=== PATIENT | female | born 1945 | race Caucasian/White ===

== ENCOUNTER → 2017-04-03 | Outpatient (CLI) | payer MEDICARE, OTHER | END | disposition home or self-care (01) | LOC: CFH 10:05 | PROVIDERS: ATTEND Internal Medicine | DX: Z12.31 Encounter for screening mammogram for malignant neoplasm of breast (principal); M85.88 Other specified disorders of bone density and structure, other site; N95.9 Unspecified menopausal and perimenopausal disorder | CPT/HCPCS: 77080; G0202 ==

== ENCOUNTER → 2018-04-14 | Outpatient (CLI) | payer MEDICARE, OTHER | END | disposition home or self-care (01) | LOC: CFH 14:17 | PROVIDERS: ATTEND Internal Medicine | DX: Z12.31 Encounter for screening mammogram for malignant neoplasm of breast (principal) | CPT/HCPCS: 77063; 77067 ==

== ENCOUNTER 2019-05-12 09:58 | Outpatient (CLI) | payer MEDICARE, OTHER ==
[2019-05-12] MEDS ORDERED: POTA20TA6 PO (13:56)
[2019-05-12] MEDS ORDERED: CARV3.122 PO (13:56)
[2019-05-12] MEDS ORDERED: AMLO1CAP42 PO (13:56)
[2019-05-12] MEDS ORDERED: MULT-709 PO (13:56)
== END 2019-05-12 23:59 | disposition home or self-care (01) ==
LOC: CFH 09:58
PROVIDERS: ATTEND Nurse Practitioner Family
DX: R92.2 Inconclusive mammogram (principal)
CPT/HCPCS: 76642; 77066; G0279

== ENCOUNTER 2019-05-12 13:08 | Outpatient (CLI) | payer MEDICARE, OTHER ==
[2019-05-12] MEDS ORDERED: CARV3.122 PO (13:56)
[2019-05-12] MEDS ORDERED: AMLO1CAP42 PO (13:56)
[2019-05-12] MEDS ORDERED: POTA20TA6 PO (13:56)
[2019-05-12] MEDS ORDERED: MULT-709 PO (13:56)
[2019-05-12 14:26] LABS: BASOPHILS # (AUTO) 0.03 x10^3/uL (0-0.1); BASOPHILS % (AUTO) 1 % (0-1); EOSINOPHILS # (AUTO) 0.14 x10^3/uL (0-0.4); EOSINOPHILS % (AUTO) 2 % (1-7); LYMPHOCYTES # (AUTO) 1.85 x10^3/uL (1-3.4); LYMPHOCYTES % (AUTO) 27 % (22-44); MD NO; MEAN CORPUSCULAR HEMOGLOBIN 30.3 pg (27.0-34.8); MEAN CORPUSCULAR VOLUME 89.1 fL (80-100); MEAN PLATELET VOLUME 8.9 fL (7.4-10.4); MONOCYTES # (AUTO) 0.63 x10^3/uL (0.2-0.8); MONOCYTES % (AUTO) 9 % (2-9); NEUTROPHILS % (AUTO) 62 % (42-75); PLATELET COUNT 251 x10^3/uL (130-400); RED BLOOD COUNT 5.13 x10^6/uL (3.82-5.3); RED CELL DISTRIBUTION WIDTH 13.4 % (9.6-15.2)
[2019-05-12 14:31] LABS: ALANINE AMINOTRANSFERASE 29 U/L (12-78); ALBUMIN 3.9 g/dL (3.4-5.0); ANION GAP 5 mmol/L (5-15); CALCIUM 9.1 mg/dL (8.5-10.1); CHLORIDE 109 mmol/L (98-107); CREATININE 0.87 mg/dL (0.55-1.02)
[2019-05-12 14:33] LABS: ALKALINE PHOSPHATASE 133 U/L (45-117); BILIRUBIN,TOTAL 0.5 mg/dL (0.2-1.0); TOTAL PROTEIN 7.5 g/dL (6.4-8.2)
[2019-05-12 14:53] LABS: MICROSCOPIC NOT IND
[2019-05-12 15:02] LABS: CULTURE INDICATED? NO
== END 2019-05-12 23:59 | disposition home or self-care (01) ==
LOC: STAR 13:08
PROVIDERS: ATTEND Orthopaedic Surgery
DX: Z01.818 Encounter for other preprocedural examination (principal); M17.12 Unilateral primary osteoarthritis, left knee
CPT/HCPCS: 36415; 80053; 81003; 85025; 87081; 87389; 93005

== ENCOUNTER 2019-05-25 05:45 | Observation (INO) | payer MEDICARE, OTHER ==
[~2019-05-25] VITALS: Ht 152.4 cm; Wt 83.2 kg
[~2019-05-25 05:45] MED LIST: AMLO1CAP42 PO; CARV3.122 PO; MULT-709 PO; POTA20TA6 PO
[2019-05-25] MEDS ORDERED: LACTATED RINGERS 1,000 ML IV SCH (06:11)
[2019-05-25] MEDS ORDERED: ROPIvacaine/PF 0.2%, 20 ML ONE (06:41)
[2019-05-25] MEDS ORDERED: KETOROLAC 60 MG/2 ML ONE (06:41)
[2019-05-25] MEDS ORDERED: morphine SULFATE/PF 1 MG/ML, 10ML ONE (06:41)
[2019-05-25] MEDS ORDERED: TRANEXAMIC ACID 100 MG/ML, 10ML ONE (06:41)
[2019-05-25] MEDS ORDERED: EPINEPHRINE 1 MG/ML, 1ML ONE (06:42)
[2019-05-25] MEDS ORDERED: SODIUM CHLORIDE 0.9% 50 ML ONE (06:42)
[2019-05-25] MEDS ORDERED: BACITRACIN 50,000 UNIT ONE (06:42)
[2019-05-25] MEDS ORDERED: VANCOMYCIN PMX 1GM/200ML 200 ML IV STA (06:54)
[2019-05-25] MEDS ORDERED: FENTANYL PF 250 MCG/5ML ONE (07:03)
[2019-05-25] MEDS ORDERED: MIDAZOLAM 1 MG/ML, 2ML ONE (07:03)
[2019-05-25] MEDS ORDERED: SCOPOLAMINE PATCH, 1.5MG PATCH.TD72 TD ONE ×2 (07:12→07:30)
[2019-05-25] MEDS ORDERED: ACETAMINOPHEN 500 MG TABLET ONE (07:12)
[2019-05-25] MEDS ORDERED: LIDOCAINE-MPF 2% ,5ML ONE (07:28)
[2019-05-25] MEDS ORDERED: ACETAMINOPHEN 500 MG TABLET PO ONE (07:30)
[2019-05-25] MEDS ORDERED: ONDANSETRON 2MG/ML, 2ML ONE ×2 (08:03→09:40)
[2019-05-25] MEDS ORDERED: DEXAMETHASONE 4 MG/ML, 1ML ONE (08:03)
[2019-05-25] MEDS ORDERED: PROPOFOL 10 MG/ML, 20ML ONE (08:03)
[2019-05-25] MEDS ORDERED: CEFAZOLIN 1,000 MG ONE (08:03)
[2019-05-25] MEDS ORDERED: BUPIVACAINE/PF 0.25% ONE (08:06)
[2019-05-25] MEDS ORDERED: FENTANYL PF 100 MCG/2ML ONE ×2 (08:16→09:41)
[2019-05-25] MEDS ORDERED: ONDANSETRON ODT 8 MG PO PRN (08:30)
[2019-05-25] MEDS ORDERED: FENTANYL PF 100 MCG/2ML IV PRN (08:30)
[2019-05-25] MEDS ORDERED: LABETALOL 5MG/ML, 20ML IV PRN (08:30)
[2019-05-25] MEDS ORDERED: PROMETHAZINE 25 MG/ML, 1ML IV PRN (08:30)
[2019-05-25] MEDS ORDERED: hydrALAzine 20 MG/ML, 1ML IV PRN (08:30)
[2019-05-25] MEDS ORDERED: ONDANSETRON 2MG/ML, 2ML IV PRN (08:30)
[2019-05-25] MEDS ORDERED: HYDROmorphone 2 MG/ML, 1ML IVPush PRN ×2 (08:30→10:00)
[2019-05-25] MEDS ORDERED: OXYcodone 5 MG/5 ML ORAL.SOL UDC PO PRN ×2 (08:30→10:00)
[2019-05-25] MEDS ORDERED: EPHEDRINE 50 MG/ML, 1ML ONE (09:54)
[2019-05-25] MEDS ORDERED: OXYcodone 5 MG/5 ML ORAL.SOL UDC ONE (09:54)
[2019-05-25] MEDS ORDERED: EPHEDRINE 50 MG/ML, 1ML IVPush PRN (10:00)
[2019-05-25] MEDS ORDERED: SODIUM CHLORIDE 0.9%, 500ML IVBOLUS ONE (10:30)
[2019-05-25] MEDS ORDERED: TRANEXAMIC ACID 1,000 MG in SODIUM CHLORIDE 0.9% 100 ML IV ONE (11:00)
[2019-05-25] MEDS ORDERED: CEFAZOLIN PMX 2GM/50ML 50 ML IVPB SCH (11:30)
[2019-05-25] MEDS ORDERED: morphine SULFATE 10 MG/ML, 1ML IV PRN (11:30)
[2019-05-25] MEDS ORDERED: ACETAMINOPHEN 325 MG TABLET PO PRN (11:30)
[2019-05-25] MEDS ORDERED: LORazepam 2 MG/ML, 1ML IV PRN (11:30)
[2019-05-25] MEDS ORDERED: DIPHENHYDRAMINE 25 MG CAPSULE PO PRN (11:30)
[2019-05-25] MEDS ORDERED: ZOLPIDEM 5MG TABLET PO PRN (11:30)
[2019-05-25 12:10] VITALS: BP 105/73
[2019-05-25] MEDS: CEFAZOLIN PMX 2GM/50ML 50 ML IVPB SCH ×2 (15:25→22:57)
[2019-05-25] MEDS: D5%-0.45% NACL 1,000 ML IV SCH ×2 (15:27→20:49)
[2019-05-25] MEDS ORDERED: ASPIRIN 325 MG TABLET EC PO SCH (17:00)
[2019-05-25] MEDS ORDERED: VANCOMYCIN PMX 1GM/200ML 200 ML IV ONE (18:00)
[2019-05-25] MEDS: ONDANSETRON 2MG/ML, 2ML IV PRN (18:12)
[2019-05-25 18:35] VITALS: BP 116/66
[2019-05-25] MEDS: DOCUSATE 100 MG CAPSULE PO SCH (20:48)
[2019-05-25] MEDS ORDERED: CARVEDILOL 3.125 MG TABLET PO SCH (21:00)
[2019-05-26] VITALS: BP 124/80
[2019-05-26] MEDS: D5%-0.45% NACL 1,000 ML IV SCH ×3 (01:54→12:00)
[2019-05-26] MEDS: ONDANSETRON 2MG/ML, 2ML IV PRN ×2 (02:03→06:52)
[2019-05-26 03:38] VITALS: BP 138/85
[2019-05-26] MEDS: OXYcodone/APAP 5/325MG TABLET PO PRN ×2 (06:53→14:18)
[2019-05-26] MEDS: CEFAZOLIN PMX 2GM/50ML 50 ML IVPB SCH (07:31)
[2019-05-26] MEDS ORDERED: VANCOMYCIN PMX 1GM/200ML 200 ML IV ONE (08:00)
[2019-05-26 08:30] VITALS: BP 131/78
[2019-05-26] MEDS: DOCUSATE 100 MG CAPSULE PO SCH (08:39)
[2019-05-26] MEDS ORDERED: BENAZEPRIL 10 MG TABLET PO SCH (09:00)
[2019-05-26] MEDS ORDERED: MULTIVITAMINS/MINERALS TABLET PO SCH (09:00)
[2019-05-26] MEDS ORDERED: AMLODIPINE 2.5 MG TABLET PO SCH (09:00)
[2019-05-26] MEDS ORDERED: POTASSIUM CHLORIDE 20 MEQ TAB.ER.PRT PO SCH (09:00)
[2019-05-26 14:15] VITALS: BP 109/60
[2019-05-26] MEDS ORDERED: ASPIRIN 325 MG TABLET EC PO SCH (17:00)
== END 2019-05-26 15:10 | disposition home or self-care (01) ==
LOC: OUT 05:45 → EDSTATUS 07:30 → 4NE 10:58 → OUT 11:22 → 4NE 11:22
PROVIDERS: ADMIT Orthopaedic Surgery; ATTEND Orthopaedic Surgery
DX: M17.12 Unilateral primary osteoarthritis, left knee (principal); G47.30 Sleep apnea, unspecified; I10 Essential (primary) hypertension; Z79.82 Long term (current) use of aspirin; Z79.899 Other long term (current) drug therapy
CPT/HCPCS: 27447; 73560; 96365; 96366; 96367; 96375; 96376; 97110; 97161; 97165; C1713; C1776; G0378; J0171; J0690; J1100; J1885; J2274; J2405; J2704; J2795; J3010; J3370; J3490; J7040; J7120; J2250